=== PATIENT | female | born 1990 | race Caucasian/White ===

== ENCOUNTER 2017-07-02 05:22 | Inpatient (IN) | payer OTHER ==
[~2017-07-02] VITALS: Ht 154.9 cm; Wt 79.5 kg
[2017-07-02] MEDS ORDERED: OXYTOCIN 30U/ 0.9% NaCL 500ML 500 ML IV SCH ×2 (05:23→07:32)
[2017-07-02] MEDS ORDERED: LACTATED RINGERS 1,000 ML IV SCH ×4 (05:23→07:32)
[2017-07-02] MEDS ORDERED: METOCLOPRAMIDE 5 MG/ML, 2ML ONE (05:24)
[2017-07-02] MEDS ORDERED: NEWBORN KIT ONE (05:25)
[2017-07-02] MEDS ORDERED: OXYTOCIN 30U/ 0.9% NaCL 500ML 500 ML ONE (05:25)
[2017-07-02] MEDS ORDERED: SODIUM CITRATE/CITRIC ACID 30 ML UDC PO ONE (05:30)
[2017-07-02] MEDS ORDERED: LACTATED RINGERS 1,000 ML IVBOLUS ONE (05:30)
[2017-07-02] MEDS ORDERED: METOCLOPRAMIDE 5 MG/ML, 2ML IV ONE (05:30)
[2017-07-02 05:36] VITALS: BP 113/73
[2017-07-02] MEDS ORDERED: PREN-3 PO (05:47)
[2017-07-02] MEDS ORDERED: ALBU0.63 NEB (05:48)
[2017-07-02 06:12] LABS: BASOPHILS # (AUTO) 0.01 x10^3/uL (0-0.1); BASOPHILS % (AUTO) 0 % (0-1); EOSINOPHILS # (AUTO) 0.04 x10^3/uL (0-0.4); EOSINOPHILS % (AUTO) 1 % (1-7); LYMPHOCYTES # (AUTO) 3.05 x10^3/uL (1-3.4); LYMPHOCYTES % (AUTO) 44 % (22-44); MD NO; MEAN CORPUSCULAR HEMOGLOBIN 25.9 pg (27.0-34.8); MEAN CORPUSCULAR HGB CONC 32.8 g/dL (32.4-35.8); MEAN CORPUSCULAR VOLUME 78.9 fL (80-100); MEAN PLATELET VOLUME 9.5 fL (7.4-10.4); MONOCYTES # (AUTO) 0.37 x10^3/uL (0.2-0.8); MONOCYTES % (AUTO) 5 % (2-9); NEUTROPHILS % (AUTO) 50 % (42-75); PLATELET COUNT 182 x10^3/uL (130-400); RED BLOOD COUNT 4.73 x10^6/uL (3.82-5.3)
[2017-07-02] MEDS ORDERED: morphine SULFATE/PF 0.5 MG/ML, 10ML ONE (07:26)
[2017-07-02] MEDS ORDERED: BUPIVACAINE/PF 0.5% ONE (07:29)
[2017-07-02] MEDS ORDERED: FENTANYL PF 100 MCG/2ML ONE ×2 (07:58→08:05)
[2017-07-02] MEDS ORDERED: MISOPROSTOL 200 MCG TABLET PR PRN (08:00)
[2017-07-02] MEDS ORDERED: METHYLERGONOVINE 0.2 MG/ML IM PRN (08:00)
[2017-07-02] MEDS ORDERED: GLYCERIN ADULT SUPP PR PRN (08:00)
[2017-07-02] MEDS ORDERED: MEPERIDINE/PF 50 MG/ML IM PRN (08:00)
[2017-07-02] MEDS ORDERED: ACETAMINOPHEN 325 MG TABLET PO PRN (08:00)
[2017-07-02] MEDS ORDERED: BISACODYL 10 MG SUPP PR PRN (08:00)
[2017-07-02] MEDS ORDERED: CARBOPROST TROMETHAMINE 250 MCG/ML, 1ML IM PRN (08:00)
[2017-07-02] MEDS ORDERED: ONDANSETRON 2MG/ML, 2ML IV PRN (08:00)
[2017-07-02] MEDS ORDERED: METOCLOPRAMIDE 5 MG/ML, 2ML IV PRN (08:00)
[2017-07-02] MEDS ORDERED: EPHEDRINE 50 MG/ML, 1ML ONE (08:09)
[2017-07-02] MEDS ORDERED: OXYTOCIN 10 UNITS/ML, 1ML ONE (08:09)
[2017-07-02] MEDS ORDERED: PHENYLEPHRINE 10 MG/ML ONE (08:09)
[2017-07-02] MEDS ORDERED: WATER-INJECTION,STERILE 10 ML IV ONE (08:09)
[2017-07-02] MEDS ORDERED: CEFAZOLIN 1,000 MG ONE (08:10)
[2017-07-02] MEDS ORDERED: SUCCINYLCHOLINE 20 MG/ML, 10ML ONE (08:10)
[2017-07-02] MEDS ORDERED: PROPOFOL 10 MG/ML, 20ML ONE (08:10)
[2017-07-02] MEDS ORDERED: morphine SULFATE 10 MG/ML, 1ML ONE (08:17)
[2017-07-02] MEDS ORDERED: DIPHENHYDRAMINE 50 MG/ML, 1ML ONE (08:38)
[2017-07-02] MEDS ORDERED: KETOROLAC 30 MG/1 ML ONE (08:43)
[2017-07-02] MEDS: PRENATAL VIT/IRON/FA 1 EACH TABLET PO SCH (09:00)
[2017-07-02] MEDS ORDERED: DIPHENHYDRAMINE 50 MG/ML, 1ML IVPush ONE (09:00)
[2017-07-02 10:45] VITALS: BP 112/63
[2017-07-02] MEDS: KETOROLAC 30 MG/1 ML IV SCH ×2 (16:00→21:39)
[2017-07-02 16:05] VITALS: BP 103/69
[2017-07-02 16:47] LABS: BASOPHILS # (AUTO) 0.04 x10^3/uL (0-0.1); BASOPHILS % (AUTO) 0 % (0-1); EOSINOPHILS # (AUTO) 0.03 x10^3/uL (0-0.4); EOSINOPHILS % (AUTO) 0 % (1-7); LYMPHOCYTES # (AUTO) 2.98 x10^3/uL (1-3.4); LYMPHOCYTES % (AUTO) 32 % (22-44); MD NO; MEAN CORPUSCULAR HEMOGLOBIN 25.7 pg (27.0-34.8); MEAN CORPUSCULAR HGB CONC 32.6 g/dL (32.4-35.8); MEAN CORPUSCULAR VOLUME 78.7 fL (80-100); MEAN PLATELET VOLUME 9.6 fL (7.4-10.4); MONOCYTES # (AUTO) 0.48 x10^3/uL (0.2-0.8); MONOCYTES % (AUTO) 5 % (2-9); NEUTROPHILS # (AUTO) 5.91 x10^3/uL (1.8-6.8); NEUTROPHILS % (AUTO) 63 % (42-75); PLATELET COUNT 154 x10^3/uL (130-400); RED BLOOD COUNT 4.02 x10^6/uL (3.82-5.3); RED CELL DISTRIBUTION WIDTH 16.1 % (9.6-15.2)
[2017-07-02] MEDS: LACTATED RINGERS 1,000 ML IV SCH (18:52)
[2017-07-02 19:55] VITALS: BP 101/67
[2017-07-02] MEDS: OXYcodone/APAP 5/325MG TABLET PO PRN (21:38)
[2017-07-02] MEDS: DOCUSATE 100 MG CAPSULE PO PRN (21:39)
[2017-07-03 00:15] VITALS: BP 110/70
[2017-07-03] MEDS: LACTATED RINGERS 1,000 ML IV SCH (03:00)
[2017-07-03] MEDS: KETOROLAC 30 MG/1 ML IV SCH ×2 (04:19→10:07)
[2017-07-03 04:31] VITALS: BP 91/60
[2017-07-03 08:00] VITALS: BP 107/72
[2017-07-03] MEDS: PRENATAL VIT/IRON/FA 1 EACH TABLET PO SCH (08:12)
[2017-07-03] MEDS: OXYcodone/APAP 5/325MG TABLET PO PRN ×4 (08:12→21:01)
[2017-07-03] MEDS: IBUPROFEN 600 MG TABLET PO PRN (15:39)
[2017-07-03 19:30] VITALS: BP 121/77
[2017-07-03] MEDS: DOCUSATE 100 MG CAPSULE PO PRN (21:01)
[2017-07-04] MEDS: IBUPROFEN 600 MG TABLET PO PRN ×2 (01:11→09:23)
[2017-07-04] MEDS: OXYcodone/APAP 5/325MG TABLET PO PRN ×2 (01:11→09:23)
[2017-07-04 07:00] VITALS: BP 121/82
[2017-07-04] MEDS: PRENATAL VIT/IRON/FA 1 EACH TABLET PO SCH (09:23)
[2017-07-04] MEDS: DOCUSATE 100 MG CAPSULE PO PRN (09:23)
[2017-07-04] MEDS ORDERED: OXYC-302 PO (09:54)
[2017-07-04] MEDS ORDERED: IBUP-1222 PO (09:55)
[2017-07-04] MEDS ORDERED: DOCU-131 PO (09:56)
== END 2017-07-04 10:45 | disposition home or self-care (01) | DRG 766 ==
LOC: LDIP 05:22 → 2NW 10:41
PROVIDERS: ADMIT Obstetrics & Gynecology; ATTEND Obstetrics & Gynecology
PROC: 10D00Z1 Extraction of Products of Conception, Low, Open Approach (ICD-10-PCS; principal; 2017-07-02)
DX: O34.211 Maternal care for low transverse scar from previous cesarean delivery (principal); H91.90 Unspecified hearing loss, unspecified ear; O99.52 Diseases of the respiratory system complicating childbirth; J45.909 Unspecified asthma, uncomplicated; Z3A.39 39 weeks gestation of pregnancy; Z37.0 Single live birth; Z90.49 Acquired absence of other specified parts of digestive tract; O75.89 Other specified complications of labor and delivery
CPT/HCPCS: 36415; 85025; 86850; 86900; J0690; J1885; J2274; J2704; J3010; J3490; J0330; J1200; J2270; J2370; J2590; J2765; J7120

== ENCOUNTER 2018-08-05 20:09 | Outpatient (CLI) | payer OTHER ==
[~2018-08-05] VITALS: Ht 154.9 cm; Wt 84.1 kg
[~2018-08-05 20:09] MED LIST: ALBU0.63 NEB; DOCU-131 PO; IBUP-1222 PO; OXYC-302 PO; PREN-3 PO
[2018-08-05 20:20] VITALS: BP 109/68
[2018-08-05 20:46] LABS: MICROSCOPIC NOT IND
== END 2018-08-05 22:16 | disposition home or self-care (01) ==
LOC: LDOP 20:09
PROVIDERS: ATTEND Obstetrics & Gynecology
DX: O62.9 Abnormality of forces of labor, unspecified (principal); Z3A.37 37 weeks gestation of pregnancy
CPT/HCPCS: 59025; 81003; 87086; 99211; G0463

== ENCOUNTER 2018-08-21 02:45 | Inpatient (IN) | payer OTHER ==
[~2018-08-21] VITALS: Ht 154.9 cm; Wt 81.0 kg
[2018-08-21 03:11] VITALS: BP 142/78
[2018-08-21] MEDS: LACTATED RINGERS 1,000 ML IV SCH ×8 (03:41→16:28)
[2018-08-21 04:10] LABS: MICROSCOPIC NOT IND
[2018-08-21] MEDS ORDERED: SODIUM CITRATE/CITRIC ACID 15 ML UDC ONE (05:06)
[2018-08-21] MEDS ORDERED: METOCLOPRAMIDE 5 MG/ML, 2ML ONE (05:06)
[2018-08-21] MEDS ORDERED: NEWBORN KIT ONE (05:06)
[2018-08-21] MEDS ORDERED: OXYTOCIN 30U/ 0.9% NaCL 500ML 500 ML ONE (05:23)
[2018-08-21] MEDS ORDERED: FENTANYL PF 100 MCG/2ML ONE (05:23)
[2018-08-21] MEDS ORDERED: morphine SULFATE/PF 0.5 MG/ML, 10ML ONE (05:23)
[2018-08-21] MEDS ORDERED: WATER-INJECTION,STERILE 10 ML IV ONE (05:28)
[2018-08-21] MEDS ORDERED: OXYTOCIN 10 UNITS/ML, 1ML ONE (05:28)
[2018-08-21] MEDS ORDERED: ONDANSETRON 2MG/ML, 2ML ONE (05:28)
[2018-08-21] MEDS ORDERED: DEXAMETHASONE 4 MG/ML, 1ML ONE (05:28)
[2018-08-21] MEDS ORDERED: CEFAZOLIN 1,000 MG ONE (05:28)
[2018-08-21] MEDS ORDERED: LACTATED RINGERS 1,000 ML IVBOLUS ONE (05:30)
[2018-08-21] MEDS ORDERED: SODIUM CITRATE/CITRIC ACID 15 ML UDC PO ONE (05:30)
[2018-08-21] MEDS ORDERED: ONDANSETRON 2MG/ML, 2ML IVPush ONE (05:30)
[2018-08-21] MEDS ORDERED: METOCLOPRAMIDE 5 MG/ML, 2ML IV ONE (05:30)
[2018-08-21 05:36] LABS: BASOPHILS # (AUTO) 0.02 x10^3/uL (0-0.1); BASOPHILS % (AUTO) 0 % (0-1); EOSINOPHILS # (AUTO) 0.06 x10^3/uL (0-0.4); EOSINOPHILS % (AUTO) 1 % (1-7); LYMPHOCYTES # (AUTO) 3.41 x10^3/uL (1-3.4); LYMPHOCYTES % (AUTO) 35 % (22-44); MD NO; MEAN CORPUSCULAR HEMOGLOBIN 26.3 pg (27.0-34.8); MEAN CORPUSCULAR HGB CONC 32.6 g/dL (32.4-35.8); MEAN CORPUSCULAR VOLUME 80.9 fL (80-100); MEAN PLATELET VOLUME 8.8 fL (7.4-10.4); MONOCYTES # (AUTO) 0.46 x10^3/uL (0.2-0.8); MONOCYTES % (AUTO) 5 % (2-9); NEUTROPHILS % (AUTO) 59 % (42-75); PLATELET COUNT 204 x10^3/uL (130-400); RED BLOOD COUNT 5.16 x10^6/uL (3.82-5.3); RED CELL DISTRIBUTION WIDTH 16.7 % (9.6-15.2)
[2018-08-21] MEDS ORDERED: ONDANSETRON 2MG/ML, 2ML IVPush PRN (06:30)
[2018-08-21] MEDS ORDERED: METOCLOPRAMIDE 5 MG/ML, 2ML IV PRN (06:30)
[2018-08-21] MEDS ORDERED: METHYLERGONOVINE 0.2 MG/ML IM PRN (06:30)
[2018-08-21] MEDS ORDERED: MORPHINE SULFATE 4 MG/ML, 1ML IVPush PRN (06:30)
[2018-08-21] MEDS ORDERED: ONDANSETRON 2MG/ML, 2ML IV PRN (06:30)
[2018-08-21] MEDS ORDERED: NO SEDATIVES, TRANQUILIZERS OR ANTIEMETICS XX SCH (06:30)
[2018-08-21] MEDS ORDERED: MISOPROSTOL 200 MCG TABLET PR PRN (06:30)
[2018-08-21] MEDS ORDERED: DIPHENHYDRAMINE 50 MG/ML, 1ML IV PRN (06:30)
[2018-08-21] MEDS ORDERED: NALOXONE 0.4 MG/ML, 1ML IV PRN (06:30)
[2018-08-21] MEDS ORDERED: morphine SULFATE 10 MG/ML, 1ML IM PRN (06:30)
[2018-08-21] MEDS ORDERED: OXYcodone 5 MG/5 ML ORAL.SOL UDC PO PRN (06:33)
[2018-08-21] MEDS ORDERED: KETOROLAC 30 MG/1 ML IVPush ONE (06:33)
[2018-08-21] MEDS: OXYTOCIN 30U/ 0.9% NaCL 500ML 500 ML IV SCH ×2 (06:43→16:28)
[2018-08-21] MEDS ORDERED: KETOROLAC 30 MG/1 ML ONE ×2 (08:58→22:16)
[2018-08-21] MEDS ORDERED: DIPHENHYDRAMINE 50 MG/ML, 1ML ONE (08:58)
[2018-08-21] MEDS ORDERED: OXYcodone 5 MG/5 ML ORAL.SOL UDC ONE (08:58)
[2018-08-21] MEDS: PRENATAL VIT/IRON/FA 1 EACH TABLET PO SCH (09:00)
[2018-08-21] MEDS ORDERED: DIPHENHYDRAMINE 50 MG/ML, 1ML IVPush PRN (09:00)
[2018-08-21] MEDS: KETOROLAC 30 MG/1 ML IVPush SCH ×3 (10:00→22:24)
[2018-08-21] MEDS ORDERED: morphine SULFATE 10 MG/ML, 1ML IVPush PRN (10:00)
[2018-08-21 10:49] VITALS: BP 124/74
[2018-08-21 13:48] LABS: BASOPHILS # (AUTO) 0.02 x10^3/uL (0-0.1); BASOPHILS % (AUTO) 0 % (0-1); EOSINOPHILS % (AUTO) 0 % (1-7); LYMPHOCYTES % (AUTO) 17 % (22-44); MD NO; MEAN CORPUSCULAR HEMOGLOBIN 26.2 pg (27.0-34.8); MEAN CORPUSCULAR HGB CONC 32.5 g/dL (32.4-35.8); MEAN CORPUSCULAR VOLUME 80.7 fL (80-100); MEAN PLATELET VOLUME 8.7 fL (7.4-10.4); MONOCYTES # (AUTO) 0.28 x10^3/uL (0.2-0.8); MONOCYTES % (AUTO) 3 % (2-9); NEUTROPHILS # (AUTO) 8.53 x10^3/uL (1.8-6.8); NEUTROPHILS % (AUTO) 80 % (42-75); PLATELET COUNT 195 x10^3/uL (130-400); RED BLOOD COUNT 4.37 x10^6/uL (3.82-5.3); RED CELL DISTRIBUTION WIDTH 16.1 % (9.6-15.2)
[2018-08-21 16:00] VITALS: BP 118/63
[2018-08-21 20:00] VITALS: BP 105/67
[2018-08-21] MEDS: OXYcodone IR 5MG TABLET PO PRN ×2 (20:04→23:14)
[2018-08-22] VITALS: BP 98/67
[2018-08-22] MEDS: OXYcodone IR 5MG TABLET PO PRN ×5 (02:22→22:00)
[2018-08-22] MEDS: KETOROLAC 30 MG/1 ML IVPush SCH (04:18)
[2018-08-22 04:44] VITALS: BP 88/60
[2018-08-22] MEDS: PRENATAL VIT/IRON/FA 1 EACH TABLET PO SCH (09:14)
[2018-08-22 09:38] VITALS: BP 114/77
[2018-08-22] MEDS: IBUPROFEN 800 MG TABLET PO PRN ×2 (12:20→20:43)
[2018-08-22] MEDS: LACTATED RINGERS 1,000 ML IV SCH ×8 (19:17→22:33)
[2018-08-22] MEDS: OXYTOCIN 30U/ 0.9% NaCL 500ML 500 ML IV SCH ×3 (19:25→22:33)
[2018-08-22 19:34] VITALS: BP 115/76
[2018-08-23] MEDS: OXYcodone IR 5MG TABLET PO PRN ×2 (02:07→07:55)
[2018-08-23] MEDS: LACTATED RINGERS 1,000 ML IV SCH ×3 (03:41→08:28)
[2018-08-23] MEDS: IBUPROFEN 800 MG TABLET PO PRN (06:15)
[2018-08-23] MEDS ORDERED: IBUP-1222 PO (08:02)
[2018-08-23] MEDS ORDERED: OXYC-302 PO (08:03)
[2018-08-23] MEDS: OXYTOCIN 30U/ 0.9% NaCL 500ML 500 ML IV SCH (08:28)
[2018-08-23 08:30] VITALS: BP 122/78
[2018-08-23] MEDS ORDERED: DOCUSATE 100 MG CAPSULE PO SCH (09:00)
== END 2018-08-23 09:00 | disposition home or self-care (01) | DRG 785 ==
LOC: LDOP 02:45 → LDIP 05:00 → 2NE 09:15 → 2NW 10:30
PROVIDERS: ADMIT Obstetrics & Gynecology; ATTEND Obstetrics & Gynecology
PROC: 10D00Z1 Extraction of Products of Conception, Low, Open Approach (ICD-10-PCS; principal; 2018-08-21)
PROC: 0UB70ZZ Excision of Bilateral Fallopian Tubes, Open Approach (ICD-10-PCS; 2018-08-21)
DX: O34.211 Maternal care for low transverse scar from previous cesarean delivery (principal); J45.909 Unspecified asthma, uncomplicated; O99.52 Diseases of the respiratory system complicating childbirth; Z3A.39 39 weeks gestation of pregnancy; Z37.0 Single live birth; Z90.49 Acquired absence of other specified parts of digestive tract; Z30.2 Encounter for sterilization
CPT/HCPCS: 36415; 81003; 85025; 86850; 86900; 88302; G0378; J0690; J1100; J1885; J2274; J2405; J3010; J1200; J2590; J2765; J7120

== ENCOUNTER 2018-09-06 16:28 | Emergency (ER) | payer OTHER ==
[~2018-09-06] VITALS: Ht 154.9 cm; Wt 78.0 kg
[2018-09-06 16:31] VITALS: BP 118/78
[2018-09-06 16:58] LABS: BASOPHILS # (AUTO) 0.07 x10^3/uL (0-0.1); BASOPHILS % (AUTO) 1 % (0-1); EOSINOPHILS % (AUTO) 1 % (1-7); LYMPHOCYTES # (AUTO) 2.74 x10^3/uL (1-3.4); LYMPHOCYTES % (AUTO) 21 % (22-44); MD NO; MEAN CORPUSCULAR HGB CONC 32.4 g/dL (32.4-35.8); MEAN CORPUSCULAR VOLUME 80.1 fL (80-100); MEAN PLATELET VOLUME 8.3 fL (7.4-10.4); MONOCYTES # (AUTO) 0.55 x10^3/uL (0.2-0.8); MONOCYTES % (AUTO) 4 % (2-9); NEUTROPHILS # (AUTO) 9.49 x10^3/uL (1.8-6.8); NEUTROPHILS % (AUTO) 73 % (42-75); PLATELET COUNT 281 x10^3/uL (130-400); RED BLOOD COUNT 5.46 x10^6/uL (3.82-5.3); RED CELL DISTRIBUTION WIDTH 15.9 % (9.6-15.2)
[2018-09-06 17:00] LABS: MICROSCOPIC AUTO
[2018-09-06 17:02] LABS: CULTURE INDICATED? YES
--- NOTE | 2018-09-06 17:10 | NUR ---
Zac musa in [facility] - 09/06/18 at 1710 by TONG PT GIVEN H20 PER DR[address] ABEL
[2018-09-06 17:11] LABS: ALBUMIN 3.7 g/dL (3.4-5.0); ANION GAP 10 mmol/L (5-15); CALCIUM 9.2 mg/dL (8.5-10.1); CHLORIDE 108 mmol/L (98-107); CREATININE 0.87 mg/dL (0.55-1.02)
--- NOTE | 2018-09-06 17:11 | NUR ---
PT BACK TO ROOM
--- NOTE | 2018-09-06 17:20 | NUR ---
Note lencho in EDM - 09/06/18 at 1723 by RFRUHLING PT ARRIVES FROM HOME TODAY WITH FAMILY WITH C/O OF INCREASED FEVERS AND FATIGUE WELL FEELING COLD AT HOME. PT REPORTS SHE DOES NOT FEEL WELL AND RECENTLY HAD A C SECTION TO DELIVER A BABY ON THE . PT CONNECTED TO MONITORS AND CALL LIGHT IN REACH. AWAITING FURTHER ORDERS. PT REPORTS NO ISSUE WITH INCESION AND REPORTS HEALING WELL.
--- NOTE | 2018-09-06 17:23 | NUR ---
PT ARRIVES FROM HOME TODAY WITH FAMILY WITH C/O OF INCREASED FEVERS AND FATIGUE WELL FEELING COLD AT HOME. PT REPORTS SHE DOES NOT FEEL WELL AND RECENTLY HAD A C SECTION TO DELIVER A BABY ON THE . PT CONNECTED TO MONITORS AND CALL LIGHT IN REACH. AWAITING FURTHER ORDERS. PT REPORTS NO ISSUE WITH INCESION AND REPORTS HEALING WELL.
--- NOTE | 2018-09-06 17:59 | NUR ---
Patient/Caregiver given discharge instructions and they have confirmed that they understand the instructions. Patient ambulatory with steady gait.
--- NOTE | 2018-09-06 17:59 | NUR ---
PT TO DC, PT HAS UTI.
== END 2018-09-06 18:26 | disposition home or self-care (01) ==
LOC: ED 18:21
DX: N30.00 Acute cystitis without hematuria (principal); R42 Dizziness and giddiness
CPT/HCPCS: 36415; 74021; 80048; 81001; 82040; 83605; 84145; 85025; 87040; 87086; 99284